=== PATIENT | female | born 1940 | race African-American/Black ===

== ENCOUNTER 2017-04-21 08:23 | Outpatient (CLI) | payer BC, MEDICARE ==
[~2017-04-21] VITALS: Ht 167.6 cm; Wt 52.2 kg
[2017-04-21] VITALS (7 sets, daily range): BP systolic 122–139; BP diastolic 60–74
[~2017-04-21 08:23] MED LIST: CARV3.122 PO; CHOL500021 PO; GUAI120L35 PO; MEGE400O PO; Oxycodone Hcl/Acetaminophen PO; POTA20TA12 PO; POTASSIUM CHLO10 MEQ PO; TRIA1TAB2 PO
[2017-04-21 08:53] LABS: BASO # 0.1 x10^3/uL (0.0-0.2); BASO % 1 % (0-3); EOS % 1 % (0-3); HEMATOCRIT 35.1 % (36.0-47.0); HEMOGLOBIN 11.5 g/dL (12.0-15.5); LYMPH % 46 % (24-48); MEAN CORPUSCULAR HEMOGLOBIN 31 pg (25-35); MEAN CORPUSCULAR HGB CONC 33 g/dL (31-37); MEAN CORPUSCULAR VOLUME 95 fL (79-100); MONO % 10 % (0-9); NEUT % 42 % (31-73); PLATELET COUNT 171 x10^3/uL (140-400); RED BLOOD COUNT 3.71 x10^6/uL (3.50-5.40); RED CELL DISTRIBUTION WIDTH 15.7 % (11.5-14.5); WHITE BLOOD COUNT 4.4 x10^3/uL (4.0-11.0)
[2017-04-21] MEDS ORDERED: LIDOCAINE 1%/EPI 1:100,000 20 ML VIAL. ONE (09:17)
[2017-04-21 09:34] LABS: PROTHROMBIN TIME PATIENT 12.7 SEC (11.7-14.0)
[2017-04-21] MEDS ORDERED: fentaNYL PF VIAL 100 MCG/2 ML VIAL ONE (10:03)
[2017-04-21] MEDS ORDERED: MIDAZOLAM HCL/PF 2 MG/2 ML VIAL. ONE (10:03)
[2017-04-21] MEDS ORDERED: fentaNYL PF VIAL 100 MCG/2 ML VIAL IV ONE (10:15)
[2017-04-21] MEDS ORDERED: LIDOCAINE 1%/EPI 1:100,000 20 ML VIAL. INJ ONE (10:15)
[2017-04-21] MEDS ORDERED: MIDAZOLAM HCL/PF 2 MG/2 ML VIAL. IV ONE (10:15)
--- NOTE | 2017-04-21 10:31 | PDOC1 ---
History and Physical Date of Procedure Date of Admission 04/21/17 Procedure Procedure Port removal Indication Indication Breast cancer, treatment completed History of Present Illness Reason for Visit Port removal Past Medical History Past Medical History Metastatic breast cancer Past Surgical History Past Surgical History Mastectomy Current Medications Current Medications Current Medications Lidocaine/ Epinephrine (Xylocaine 1%-Epi 1:100,000) 20 ml STK-MED ONCE .ROUTE ; Start 04/21/17 at 09:17; Stop 04/21/17 at 09:18; Status DC Heparin Sodium/ Sodium Chloride 500 ml @ As Directed STK-MED ONCE .ROUTE ; Start 04/21/17 at 09:17; Stop 04/21/17 at 09:18; Status DC Fentanyl Citrate (Fentanyl 2ml Vial) 100 mcg STK-MED ONCE .ROUTE ; Start at 10:03; Stop 04/21/17 at 10:04; Status DC Midazolam HCl (Versed) 2 mg STK-MED ONCE .ROUTE ; Start 04/21/17 at 10:03; Stop 04/21/17 at 10:04; Status DC Heparin Sodium/ Sodium Chloride 1,000 unit 1X ONCE IART ; Start 04/21/17 at 10: 15; Stop 04/21/17 at 10:22; Status DC Midazolam HCl (Versed) 2 mg 1X ONCE IV ; Start 04/21/17 at 10:15; Stop at 10:22; Status DC Fentanyl Citrate (Fentanyl 2ml Vial) 100 mcg 1X ONCE IV ; Start 04/21/17 at 10: 15; Stop 04/21/17 at 10:22; Status DC Lidocaine/ Epinephrine (Xylocaine 1%-Epi 1:100,000) 20 ml 1X ONCE INJ ; Start 04/21/17 at 10:15; Stop 04/21/17 at 10:22; Status DC Active Scripts Active Reported Maxzide 37.5 Mg-25 Mg Tablet (Triamterene/Hydrochlorothiazid) 1 Each Tablet 0.5 Each PO DAILY Megace (Megestrol Acetate) 400 Mg/10 Ml Oral.susp 20 Ml PO DAILY Potassium Chloride 10 Meq Capsule.er 10 Meq PO DAILY D3-50 (Cholecalciferol (Vitamin D3)) 50,000 Unit Capsule 50,000 Unit PO WEEKLY Allergies Allergies: Coded Allergies: No Known Drug Allergies (Unverified , 01/07/15) Physical Exam Vital Signs Vital Signs Date Time Temp Pulse Resp B/P (MAP) Pulse Ox O2 Delivery O2 Flow Rate FiO2 04/21/17 10:24 67 23 100 Nasal Cannula 2.0 04/21/17 09:23 97.8 132/74 (93) 97.8 Other GENERAL: No apparent distress. Alert and oriented. HEENT: Head normocephalic, atraumatic. NECK: Supple, right portacath LUNGS: Clear to auscultation. HEART: RRR, S1, S2 present, pulses intact ABDOMEN: Soft, positive bowel sounds. EXTREMITIES: No cyanosis or edema. NEUROLOGIC: Normal speech, normal tone PSYCHIATRIC: Normal affect, normal mood. SKIN: No ulceration. Assessment Assessment Right port no longer needed Problems: Plan Plan Port removal GUICHO LOCKHART MD Apr 21, 2017 10:31
--- NOTE | 2017-04-21 10:41 | PDOC ---
Exam [employer] Water[employer] Henri Shelter Director Shelter Director None Pre-Procedure Diagnosis Pre-Procedure Diagnosis Breast cancer, treatment completed Post-Procedure Diagnosis Post-Procedure Diagnosis Same Procedure Performed Procedure Performed Port removal Type of Anesthesia Type of Anesthesia Moderate Estimated Blood Loss EBL: None Specimens Specimans Port removed. Drain/Tubes Drains/Tubes None Condition of Patient Condition of Patient Stable GUICHO LOCKHART MD Apr 21, 2017 10:41
--- NOTE | 2017-04-21 11:09 | RAD ---
Procedure: Right chest port-a-cath removal. CLINICAL INDICATION: Breast cancer, therapy completed, port no longer needed The procedure, risks, and complications, to include bleeding and infection were explained to the patient and they understood and wished to proceed. Consent form signed. The right anterior chest region was prepped and draped using maximal sterile technique and 1% Xylocaine used for local anesthesia. An incision was made at the prior wound site and utilizing sharp and blunt dissection, the chest port and the catheter tubing was removed intact. The pocket was washed and no bleeding was identified. The pocket was then closed with interrupted 3-0 Vicryl suture followed by 2-0 Vicryl running subcutaneous sutures and Dermabond. Sterile dressing was applied. The patient tolerated procedure well and there no immediate complications. IMPRESSION: Successful right chest Port-A-Cath removal.
== END 2017-04-21 12:20 | disposition home or self-care (01) ==
LOC: INTRAD 08:23
PROVIDERS: ATTEND Internal Medicine Hematology & Oncology
DX: C50.911 Malignant neoplasm of unspecified site of right female breast (principal); F17.200 Nicotine dependence, unspecified, uncomplicated; Z90.49 Acquired absence of other specified parts of digestive tract; Z72.0 Tobacco use; Z79.01 Long term (current) use of anticoagulants
CPT/HCPCS: 36415; 36590; 85025; 85610; 99152; 99153; J1644; J2250; J3010; J3490